=== PATIENT | female | born 1970 | race Caucasian/White ===

== ENCOUNTER 2018-06-12 14:35 | Emergency (ER) | payer OTHER ==
[2018-06-12 14:54] VITALS: BP 132/85; PULSE 74; TEMP 97.6; O2SAT 99
--- NOTE | 2018-06-12 15:28 | C.PDOC ---
History Of Present Illness 47 y/o female comes in to ED complaining of body itching for the past few weeks. Patient denies any rash, urinary symptoms, weakness, or cough. Patient has no other complaints. States she is being treated with some topical cream by a assistant professor of criminal justice for vitiligo. Patient is now requesting blood test for itching. Time Seen by Provider: 06/12/18 14:56 Chief Complaint (Nursing): Abnormal Skin Integrity History Per: Patient History/Exam Limitations: no limitations Onset/Duration Of Symptoms: Days Current Symptoms Are (Timing): Still Present Past Medical History Reviewed: Historical Data, Nursing Documentation, Vital Signs Vital Signs: Last Vital Signs Temp 97.6 F 06/12/18 14:51 Pulse 74 06/12/18 14:51 Resp 16 06/12/18 14:51 BP 132/85 06/12/18 14:51 Pulse Ox 99 06/12/18 14:51 Family History: States: No Known Family Hx - Social History Hx Tobacco Use: No Hx Alcohol Use: No Hx Substance Use: No - Immunization History Hx Tetanus Toxoid Vaccination: No Hx Influenza Vaccination: No Hx Pneumococcal Vaccination: No Review Of Systems Except As Marked, All Systems Reviewed And Found Negative. Constitutional: Positive for: Other (Itching) Physical Exam - Physical Exam Appears: Non-toxic, No Acute Distress Skin: Normal Color, Warm, Dry, No Rash Head: Atraumatic, Normacephalic Eye(s): bilateral: Normal Inspection, PERRL, EOMI Ear(s): Bilateral: Normal Oral Mucosa: Moist Neck: Supple Chest: Symmetrical Cardiovascular: Rhythm Regular, No Murmur Respiratory: Normal Breath Sounds, No Rales, No Rhonchi, No Wheezing Extremity: Bilateral: Normal Color And Temperature, Normal ROM Neurological/Psych: Oriented x3, Normal Speech ED Course And Treatment O2 Sat by Pulse Oximetry: 99 (RA) Pulse Ox Interpretation: Normal Medical Decision Making Medical Decision Making: Impression: Pruritus Plan: --Claritin 10 mg PO Patient will be discharged home and was advised to follow up with assistant professor of criminal justice within 2 days for further evaluation. Disposition Counseled Patient/Family Regarding: Diagnosis, Need For Followup, Rx Given - Disposition Disposition: HOME/ ROUTINE Disposition Time: 15:26 Condition: STABLE Additional Instructions: follow up with your assistant professor of criminal justice within 2 days call to make an appointment take medications as prescribed return to ER if symptoms worsens or progress Prescriptions: Loratadine [Claritin] 10 mg PO DAILY PRN #15 tab PRN Reason: Other Instructions: Itchy Skin Forms: General Discharge Instructions, [facility] ([facility]), Work Excuse - Clinical Impression Clinical Impression: Chronic pruritus - Scribe Statement The provider has reviewed the documentation as recorded by the Susie Bruce Provider Attestation: All medical record entries made by the Susie were at my direction and personally dictated by me. I have reviewed the chart and agree that the record accurately reflects my personal performance of the history, physical exam, medical decision making, and the department course for this patient. I have also personally directed, reviewed, and agree with the discharge instructions and disposition.
[2018-06-12 15:40] VITALS: RESP 17
== END 2018-06-12 15:40 | disposition home or self-care (01) ==
LOC: C.ER 14:35
DX: L29.9 Pruritus, unspecified (principal)